=== PATIENT | male | born 1975 | race Two or more races ===

== ENCOUNTER 2018-02-04 20:29 | Emergency (ER) | payer SELFPAY ==
[~2018-02-04] VITALS: Ht 180.3 cm; Wt 113.4 kg
[2018-02-04 23:49] VITALS: BP 112/61
== END 2018-02-05 01:38 | disposition home or self-care (01) ==
LOC: ER 20:29
DX: S61.411A Laceration without foreign body of right hand, initial encounter (principal); W25.XXXA Contact with sharp glass, initial encounter; Y93.89 Activity, other specified; Y99.8 Other external cause status; Y92.89 Other specified places as the place of occurrence of the external cause
CPT/HCPCS: 12002; 73120

== ENCOUNTER 2019-05-06 12:37 | Emergency (ER) | payer MEDICAID, OTHER ==
[~2019-05-06] VITALS: Ht 180.3 cm; Wt 127.0 kg
[2019-05-06 15:44] VITALS: BP 140/70
[2019-05-06] MEDS ORDERED: HYDROcodone-ACET 10/325MG TAB PO ONE (16:30)
[2019-05-06] MEDS ORDERED: cefTRIAXone SOD 1,000 MG VL IM ONE (17:45)
[2019-05-06] MEDS ORDERED: cefTRIAXone W LIDOCAINE 1 GM IM IM ONE (19:30)
[2019-05-06] MEDS ORDERED: cefTRIAXone SOD 1,000 MG VL ONE (19:38)
[2019-05-06] MEDS ORDERED: LIDOCAINE 1% HCL (LOCAL ANESTH.) INJ 20ML MDV ONE (19:39)
== END 2019-05-06 20:02 | disposition home or self-care (01) ==
LOC: ER 12:39
DX: S62.202A Unspecified fracture of first metacarpal bone, left hand, initial encounter for closed fracture (principal); W20.8XXA Other cause of strike by thrown, projected or falling object, initial encounter; Y93.51 Activity, roller skating (inline) and skateboarding; Y92.89 Other specified places as the place of occurrence of the external cause; Y99.8 Other external cause status
CPT/HCPCS: 29125; 73110; 73140; 96372; 99283; J0696; J2001